=== PATIENT | female | born 1975 ===

== ENCOUNTER 2016-12-21 09:07 | Emergency (ER) | payer OTHER ==
[2016-12-21 09:32] VITALS: BP 124/76
--- NOTE | 2016-12-21 09:45 | UC ---
Back Pain HPI - HPI Summary HPI Summary: PATIENT PRESENTS TO WITH CC OF MID-BACK PAIN WHICH HAS BEEN PRESENT FOR 3 DAYS. SHE STATES SHE HAS COPD AND SIGNIFICANT HISTORY OF PNA AND BRONCHITIS WHICH IS ALWAYS ASSOCIATED WITH THIS TYPE OF BACK PAIN. SHE ENDORSES COUGH, GREEN SPUTUM PRODUCTION. DENIES SOB. SHE DENIES INJURY. PAIN IS DISCRETE AT MID-BACK AND RADIATES TO THE CHEST. SHE DENIES MID-STERNAL CHEST PAIN AND PAIN IS WORSE WITH COUGH. PATIENT IS A SMOKER. - History of Current Complaint Hx Obtained From: Patient Hx Last Menstrual Period: 3 weeks ago ?: No Onset/Duration: Gradual Onset Timing: Constant Severity Initially: Moderate Severity Currently: Moderate Pain Intensity: 2 Pain Scale Used: 0-10 Numeric Back Pain: Is Discrete @ - MID-BACK RADIATING TO THE CHEST Aggravating: Walking, Cough Alleviating: Rest Associated Signs And Symptoms: Positive: Negative - Risk Factors AAA Risk Factors: Negative TAD Risk Factors: Negative Cauda Equina Risk Factors: Negative Epidural Abscess Risk Factors: Negative <Sofai Ramirez - Last Filed: 12/21/16 10:20> <Merry Antunez - Last Filed: 12/21/16 10:55> - History of Current Complaint Chief Complaint: UCGeneralIllness Stated Complaint: MID BACK PAIN Time Seen by Provider: 12/21/16 09:35 - Allergies/Home Medications Allergies/Adverse Reactions: Allergies Allergy/AdvReac Type Severity Reaction Status Date / Time Codeine AdvReac Intermediate vomitting Verified 12/21/16 09:33 Home Medications: Home Medications Metoprolol Tartrate TAB* [Lopressor TAB*] 25 mg PO DAILY 12/21/16 [History Confirmed 12/21/16] Omeprazole CAP* [Prilosec CAP* 20 MG] 20 mg PO DAILY 12/21/16 [History Confirmed 12/21/16] Simvastatin [Zocor 40 MG (NF)] 40 mg PO QPM 12/21/16 [History Confirmed 12/21/16 ] PMH/Surg Hx/FS Hx/Imm Hx Previously Healthy: Yes - HTN Cardiovascular History Of: Reports: Hypertension - Surgical History Surgical History: Yes Surgery Procedure, Year, and Place: Gallbladder removed - Family History Known Family History: Positive: Hypertension - Social History Occupation: Employed Full-time Lives: With Family Alcohol Use: None Substance Use Type: None Smoking Status (MU): Current Every Day Smoker Type: Cigarettes Amount Used/How Often: 1/2 ppd Have You Smoked in the Last Year: Yes Household Exposure Type: Cigarettes <Sofia Ramirez - Last Filed: 12/21/16 10:20> Review of Systems Constitutional: Negative Skin: Negative ENT: Negative Respiratory: Cough Cardiovascular: Chest Pain - WITH COUGH Gastrointestinal: Negative Genitourinary: Negative Neurovascular: Negative Musculoskeletal: Arthralgia - midback pain Psychological: Negative All Other Systems Reviewed And Are Negative: Yes <Sofia Ramirez Sudhir - Last Filed: 12/21/16 10:20> Physical Exam Triage Information Reviewed: Yes Appearance: Well-Appearing, No Pain Distress, Well-Nourished Vital Signs: Initial Vital Signs Temp 98.9 F 12/21/16 09:23 Pulse 66 12/21/16 09:23 Resp 18 12/21/16 09:23 BP 124/76 12/21/16 09:23 Pulse Ox 100 12/21/16 09:23 Vital Signs Reviewed: Yes Eye Exam: Normal Eyes: Positive: Conjunctiva Clear ENT Exam: Normal Dental Exam: Normal Neck exam: Normal Neck: Positive: Supple, Nontender, No Lymphadenopathy Respiratory Exam: Normal Respiratory: Positive: Chest non-tender, Lungs clear, Normal breath sounds, Other: - equal breath sounds, non-tender, no wheezing noted. equal chest expansion Cardiovascular Exam: Normal Cardiovascular: Positive: RRR Musculoskeletal Exam: Normal Musculoskeletal: Positive: Strength Intact, Other: - no midline tenderness Neurological Exam: Normal Neurological: Positive: Alert, Muscle Tone Normal Psychological Exam: Normal Psychological: Positive: Normal Response To Family, Age Appropriate Behavior Skin Exam: Normal <Sofia Ramirez Sudhir - Last Filed: 12/21/16 10:20> Vital Signs: Initial Vital Signs Temp 98.9 F 12/21/16 09:23 Pulse 66 12/21/16 09:23 Resp 18 12/21/16 09:23 BP 124/76 12/21/16 09:23 Pulse Ox 100 12/21/16 09:23 <Merry Antunez - Last Filed: 12/21/16 10:55> Back Pain Course/Dx - Course Course Of Treatment: 3 DAY HISTORY OF MIDBACK PAIN WHICH IS CONSTANT. SHE NOTES TO A COUGH WITH GREEN SPUTUM PRODUCTION, IS A SMOKER AND HAS A SIGNIFICANT HISTORY OF PNA AND BRONCHITIS IN RELATION TO MIDBACK PAIN. CHEST XRAY NEGATIVE FOR ACTIVE DISEASE. DX MUSCLE STRAIN. FLEXERIL GIVEN FOR RX. PRECAUTIONS GIVEN AND ENCOURAGED MOIST HEAT AND IBUPROFEN THREE TIMES DAILY. PATIENTS MEDICATIONS ARE REVIEWED AT VISIT. - Differential Dx/Diagnosis Differential Diagnosis/HQI/PQRI: Strain, Sprain, Other - BRONCHITIS Provider Diagnoses: MUSCLE STRAIN <Sofia Ramirez - Last Filed: 12/21/16 10:20> Discharge <Sofia Ramirez - Last Filed: 12/21/16 10:20> <Merry Antunez - Last Filed: 12/21/16 10:55> - Discharge Plan Condition: Stable Disposition: HOME Prescriptions: Cyclobenzaprine TAB* [Flexeril TAB*] 10 mg PO BID PRN #10 tab PRN Reason: Pain Patient Education Materials: Core Strengthening Exercises (GEN), Thoracic Back Strain (ED) Referrals: Bella Valdez PA [Primary Care Provider] - Additional Instructions: Dx. Muscle Strain Flexeril: This medication is a muscle relaxant and can help relieve muscle spasms, muscle strain, or pain sensations. Flexeril can cause side effects that may impair your thinking or reactions. Be careful if you drive or do anything that requires you to be awake and alert. Avoid drinking alcohol, which can increase some of the side effects of Flexeril. Ibuprofen 600mg three times daily with meals for discomfort. Return to ED if symptoms worsen or fail to improve, notice worsening swelling, warmth or redness around the joint, develop fever, or pain is uncontrolled with OTC medications. Moist heat to the area for comfort. Warm showers or baths may improve symptoms. It is important to remain mobile as tolerated to prevent stiffening of the joints and delay healing. Follow up with your PCP. If symptoms remain for > 6 weeks, please seek special medical attention from an orthopedic physician. Attestation Statement User Type: Provider - I was available for consult. This patient was seen by the FANNY. The patient was not presented to, seen by, or examined by me. -Owen <Merry Antunez - Last Filed: 12/21/16 10:55>
--- NOTE | 2016-12-21 10:10 | RAD ---
INDICATION: COPD COMPARISON: September 25, 2006 TECHNIQUE: PA and lateral dual-energy views were obtained. FINDINGS: Bones/Soft Tissues: There are no acute bony findings. There is osteopenia with mild kyphosis Cardiomediastinal: The cardiomediastinal silhouette is normal. Lungs: There are no infiltrates. Pleura: There are no pleural effusions. Other: None IMPRESSION: NO ACTIVE DISEASE.
== END 2016-12-21 10:26 | disposition home or self-care (01) ==
LOC: UCCORT 09:07
DX: S29.012A Strain of muscle and tendon of back wall of thorax, initial encounter (principal); X58.XXXA Exposure to other specified factors, initial encounter; Y93.9 Activity, unspecified; Y92.9 Unspecified place or not applicable; I10 Essential (primary) hypertension; Z90.49 Acquired absence of other specified parts of digestive tract; Z88.5 Allergy status to narcotic agent; F17.210 Nicotine dependence, cigarettes, uncomplicated
CPT/HCPCS: 71020; 99212; G0463